=== PATIENT | male | born 1995 | race African-American/Black ===

== ENCOUNTER 2017-03-31 13:23 | Emergency (ER) | payer SELFPAY ==
[2017-03-31 13:25] VITALS: BP 126/72; PULSE 59; RESP 12; TEMP 98.8; O2SAT 98
--- NOTE | 2017-03-31 14:04 | PD ---
HPI Chief Complaint: Medical Clearance Time Seen by Provider: 13:57 Travel History International Travel<30 days: No Contact w/Intl Traveler<30days: No Traveled to known affect area: No History of Present Illness HPI 22-year-old male presents emergency department requesting testing for a "disease " that he heard was going around campus. Specifies that he is concerned about Chlamydia. He is sexually active and does not use protection. He does not know if he spent exposed to chlamydia. He denies penile discharge, pain. Denies dysuria. Denies testicular pain or swelling. Denies abdominal pain, vomiting, fever. Has no current medical complaints at this time. No known relieving or aggravating factors. Symptoms are mild in severity. No known allergies. Does not have a primary care provider in this area. No significant past medical history. No other modifying factors or associated signs and symptoms. Allergies-Medications (Allergen,Severity, Reaction): Coded Allergies: No Known Allergies (Unverified , 03/31/17) Reported Meds & Prescriptions Reported Meds & Active Scripts Active No Active Prescriptions or Reported Medications Review of Systems Except as stated in HPI: all other systems reviewed are Neg Physical Exam Narrative GENERAL: Well-nourished, well-developed black male patient, in no acute distress ; afebrile, nontoxic-appearing SKIN: Warm and dry. HEAD: Atraumatic. Normocephalic. EYES: Pupils equal and round No scleral icterus. No injection or drainage. ENT: Mucosa pink and moist. Airway patent. NECK: Trachea midline. CARDIOVASCULAR: Regular rate and rhythm. No murmur appreciated. RESPIRATORY: No accessory muscle use. Clear to auscultation. Breath sounds equal bilaterally. GASTROINTESTINAL: Abdomen soft, non-tender, nondistended. Hepatic and splenic margins not palpable. Bowel sounds are active 4 quadrants. BACK: No CVA tenderness. MUSCULOSKELETAL: No obvious deformities. No clubbing. No cyanosis. No edema. NEUROLOGICAL: Awake and alert. Oriented 3. No obvious cranial nerve deficits. Motor grossly within normal limits. Normal speech. PSYCHIATRIC: Appropriate mood and affect; insight and judgment normal. Data Data Last Documented VS Vital Signs Date Time Temp Pulse Resp B/P (MAP) Pulse Ox O2 Delivery O2 Flow Rate FiO2 03/31/17 13:25 98.8 59 12 126/72 (90) 98 MDM Medical Screen Exam Complete: Yes Emergency Medical Condition: No Differential Diagnosis Medical clearance Narrative Course Vital signs are stable and the patient is stable for outpatient follow-up and treatment. The patient has no urgent or emergent medical complaints. There is no emergent or urgent medical need at this time. I instructed the patient to follow up with their primary care provider. A medical screening exam was performed: At the time of evaluation the presenting medical condition was determined not to be of an emergent nature. The patient was given the option of receiving additional care, but declined. Patient was given options for additional community resources from which to obtain care. The Patient Has Been advised to seek medical attention for their presenting complaint. The patient has been advised to return to the ER at any time if an emergent condition develops. Primary Impression: Encounter for medical screening examination Scripts No Active Prescriptions or Reported Meds Condition: Stable Madison Arreguin Mar 31, 2017 14:03
== END 2017-03-31 14:18 | disposition left against medical advice (07) ==
LOC: NEPD 13:23
DX: Z13.9 Encounter for screening, unspecified (principal)
CPT/HCPCS: 99281